=== PATIENT | male | born 1990 | race African-American/Black ===

== ENCOUNTER 2020-10-10 10:06 | Emergency (ER) | payer SELFPAY ==
[2020-10-10] MEDS ORDERED: Proparacaine 0.5% Opth 15 ML BOT ONE (12:46)
[2020-10-10] MEDS ORDERED: Fluorescein Opthalmic Strip ONE (12:47)
== END 2020-10-10 13:51 | disposition home or self-care (01) ==
LOC: ERS 10:06
DX: T65.891A Toxic effect of other specified substances, accidental (unintentional), initial encounter (principal); H10.212 Acute toxic conjunctivitis, left eye; F17.210 Nicotine dependence, cigarettes, uncomplicated; H10.213 Acute toxic conjunctivitis, bilateral
CPT/HCPCS: 99283